=== PATIENT | female | born 1965 | race Caucasian/White ===

== ENCOUNTER 2016-05-27 10:41 | Emergency (ER) | payer SELFPAY ==
[2016-05-27 10:43] VITALS: BP 202/96; PULSE 68; RESP 16; TEMP 98.5; O2SAT 99
[2016-05-27 10:48] VITALS: BP 181/97
[2016-05-27] MEDS ORDERED: MAGICADU2 SWISH-SPIT (11:00)
[2016-05-27] MEDS ORDERED: IBUP800T23 PO (11:00)
[2016-05-27] MEDS ORDERED: PERI0.126 SWISH-SPIT (11:00)
[2016-05-27] MEDS ORDERED: CLIN1CAP5 PO (11:00)
--- NOTE | 2016-05-27 11:00 | PD ---
HPI Chief Complaint: Oral / Dental Pain or Problem Time Seen by Provider: 10:58 Travel History International Travel<30 days: No Contact w/Intl Traveler<30days: No Traveled to known affect area: No History of Present Illness HPI 51-year-old female presents to the emergency Department with complaint of left lower tooth pain 2 days. Denies fever, chills, nausea, vomiting. Denies facial swelling or erythema. She is here on vacation and she called her dentist and he told her to come to the emergency department for antibiotics. She is requesting anabiotic's. She is allergic to penicillin. Patient on Plavix for history of heart attack with stent placement. Denies other significant past medical history. No other modifying factors or associated signs and symptoms. PFSH Past Medical History Hx Anticoagulant Therapy: Yes (plavix) Social History Tobacco Use: No Allergies-Medications (Allergen,Severity, Reaction): Coded Allergies: Penicillin (Verified Adverse Reaction, Severe, 05/27/16) FLUID UNDER THE JOINTS Reported Meds & Prescriptions Reported Meds & Active Scripts Active Magic Mouthwash Adult Liq (Multi-Ingredient Mouthwash/Gargle) 120 Ml Susp 5 Ml SWISH-SPIT Q3HR PRN Each 5mL contains: Nystatin 200,000units, Diphenhydramine 4.25mg, Viscous Lidocaine 10mg, Ugalde syrup 0.8 mL Peridex Liq (Chlorhexidine Gluconate (Mouth) Liq) 0.12% Soln 15 Ml SWISH-SPIT BID 10 Days Clindamycin (Clindamycin HCl) 150 Mg Cap 450 Mg PO Q6H 10 Days Ibuprofen 800 Mg Tab 800 Mg PO Q6HR PRN Review of Systems Except as stated in HPI: all other systems reviewed are Neg Physical Exam Narrative GENERAL: Well-nourished, well-developed patient, in no acute distress; afebrile , nontoxic appearing SKIN: Warm and dry. HEAD: Atraumatic. Normocephalic. No facial edema, erythema, tenderness on palpation. No lymphadenopathy. EYES: Pupils equal and round. No scleral icterus. No injection or drainage. ENT: Mucosa pink and moist. Airway patent. MOUTH: Mucous membranes moist, no lesions, tongue and gums appear normal. Left lower second molar is with large dental cavity and decay; tenderness to palpation; concerning gingiva is without erythema, edema, drainage; no obvious abscess noted. NECK: Trachea midline. No lymphadenopathy. CARDIOVASCULAR: Regular rate. RESPIRATORY: No accessory muscle use. GASTROINTESTINAL: Flat. MUSCULOSKELETAL: No obvious deformities. No clubbing. No cyanosis. No edema. NEUROLOGICAL: Awake and alert. Oriented 3. No obvious cranial nerve deficits. Motor grossly within normal limits. Normal speech. PSYCHIATRIC: Appropriate mood and affect; insight and judgment normal. Data Data Last Documented VS Vital Signs Date Time Temp Pulse Resp B/P Pulse Ox O2 Delivery O2 Flow Rate FiO2 05/27/16 10:48 181/97 05/27/16 10:43 98.5 68 16 99 Orders Acetaminophen (Tylenol) (05/27/16 11:15) [facility] Medical Decision Making Medical Screen Exam Complete: Yes Emergency Medical Condition: Yes Medical Record Reviewed: Yes Differential Diagnosis Dental abscess, dentalgia, gingivitis Narrative Course 51-year-old female physical exam consistent with left lower second molar dentalgia. Afebrile and nontoxic appearing. Patient denies fever, chills, nausea, vomiting. No facial edema or erythema. Ordered to penicillin. Patient on Plavix. Tylenol ordered. Clindamycin, Peridex mouth rinse, Magic mouthwash prescribed for home. Patient is medically cleared and stable for discharge. Discussed reasons to return to the emergency department. Instructed patient to follow up with primary care provider. Patient agrees with treatment plan. The patients vital signs are stable and the patient is stable for outpatient follow-up and treatment. Patient discharged home, stable and in no acute distress. Diagnosis Primary Impression: Dentalgia Referrals: Dentist Primary Care Physician Patient Instructions: Dental Abscess (ED), Dental Caries (ED), General Instructions, Toothache (ED) Departure Forms: Tests/Procedures, Work Release Enter return to work date: May 27, 2016 Additional Instructions: Complete full course of antibiotics Ibuprofen or Tylenol as directed and as needed to reduce pain and inflammation Use Magic mouthwash rinse as directed and as needed to decrease pain Use Peridex as directed for oral hygiene Warm compresses to the affected area Follow-up with dentist Follow-up with primary care provider Return to emergency department immediately with worsening of symptoms Med/Other Pt SpecificInfo: Prescription(s) given Scripts Dxcsqyok-Kawqyqgzdfjvgpt-Mzcxmjpos Liq (Magic Mouthwash Adult Liq)120 Ml Susp5 Ml SWISH-SPIT Q3HR PRN (PAIN SCALE 1 TO 10) #120 ML Ref 0 Each 5mL contains: Nystatin 200,000units, Diphenhydramine 4.25mg, Viscous Lidocaine 10mg, Ugalde syrup 0.8 mL Prov:Tabatha Sanz 05/27/16 Chlorhexidine Gluconate (Mouth) Liq (Peridex Liq)0.12% Soln15 Ml SWISH-SPIT BID 10 Days Ref 0 Prov:Tabatha Sanz 05/27/16 Clindamycin 150 Mg Mix957 Mg PO Q6H 10 Days Ref 0 Prov:Tabatha Sanz 05/27/16 Disposition: 01 DISCHARGE HOME Condition: Stable Tabatha Sanz May 27, 2016 11:00
[2016-05-27] MEDS ORDERED: ACETAMINOPHEN 325 MG TAB PO ONE (11:15)
== END 2016-05-27 11:21 | disposition home or self-care (01) ==
LOC: NEPB 10:41
DX: K08.89 Other specified disorders of teeth and supporting structures (principal); Z79.02 Long term (current) use of antithrombotics/antiplatelets; I25.2 Old myocardial infarction; Z88.0 Allergy status to penicillin
CPT/HCPCS: 99282

== ENCOUNTER 2016-05-30 13:29 | Emergency (ER) | payer SELFPAY ==
[~2016-05-30] VITALS: Ht 170.2 cm; Wt 70.0 kg
[~2016-05-30 13:29] MED LIST: CLIN1CAP5 PO; MAGICADU2 SWISH-SPIT; PERI0.126 SWISH-SPIT
[2016-05-30 13:37] VITALS: BP 194/104; PULSE 83; RESP 16; TEMP 98.1; O2SAT 98
[2016-05-30 15:40] VITALS: BP 197/88; PULSE 82; RESP 19; O2SAT 97
[2016-05-30] MEDS ORDERED: BLOOD PRESSURE MED PO (15:49)
[2016-05-30] MEDS ORDERED: APIX2.5T PO (15:49)
--- NOTE | 2016-05-30 15:49 | PD ---
HPI Chief Complaint: Oral / Dental Pain or Problem Time Seen by Provider: 15:47 Travel History International Travel<30 days: No Contact w/Intl Traveler<30days: No Traveled to known affect area: No History of Present Illness HPI 51-year-old female presents emergency Department with complaint of left lower dental pain since she was seen here on May 27. She has been taking the clindamycin that was prescribed to her as directed. She has not followed up with dentist. She is asking for pain medications. Patient is on anticoagulants for history of cardiac stents. She does not know what anticoagulant she is on. She denies fever, chills, nausea, vomiting. Reports swelling to her gums around the painful tooth. Allergies to penicillin. No other modifying factors or associated signs and symptoms. PFSH Past Medical History Hx Anticoagulant Therapy: Yes (plavix) ?: Not Past Surgical History Hysterectomy: Yes Social History Tobacco Use: No Allergies-Medications (Allergen,Severity, Reaction): Coded Allergies: Penicillin (Verified Adverse Reaction, Severe, 05/30/16) FLUID UNDER THE JOINTS Reported Meds & Prescriptions Reported Meds & Active Scripts Active Deltasone (Prednisone) 20 Mg Tab 40 Mg PO DAILY 5 Days Magic Mouthwash Adult Liq (Multi-Ingredient Mouthwash/Gargle) 120 Ml Susp 5 Ml SWISH-SPIT Q3HR PRN Each 5mL contains: Nystatin 200,000units, Diphenhydramine 4.25mg, Viscous Lidocaine 10mg, Ugalde syrup 0.8 mL Peridex Liq (Chlorhexidine Gluconate (Mouth) Liq) 0.12% Soln 15 Ml SWISH-SPIT BID 10 Days Clindamycin (Clindamycin HCl) 150 Mg Cap 450 Mg PO Q6H 10 Days Reported [Blood Pressure Med] 1 Tab PO BID Eliquis (Apixaban) 2.5 Mg Tab 2.5 Mg PO BID UNKNOWN DOSE Review of Systems Except as stated in HPI: all other systems reviewed are Neg Physical Exam Narrative GENERAL: Well-nourished, well-developed female patient, in no acute distress SKIN: Warm and dry. HEAD: Atraumatic. Normocephalic. No facial edema, erythema, tenderness on palpation. No lymphadenopathy. EYES: Pupils equal and round. No scleral icterus. No injection or drainage. ENT: Mucosa pink and moist. Airway patent. MOUTH: Mucous membranes moist, no lesions, tongue and gums appear normal. Left lower second molar with tenderness palpation and obvious abscess with fluctuance noted. NECK: Trachea midline. No lymphadenopathy. CARDIOVASCULAR: Regular rate. RESPIRATORY: No accessory muscle use. GASTROINTESTINAL: Flat. MUSCULOSKELETAL: No obvious deformities. No clubbing. No cyanosis. No edema. NEUROLOGICAL: Awake and alert. Oriented 3. No obvious cranial nerve deficits. Motor grossly within normal limits. Normal speech. PSYCHIATRIC: Appropriate mood and affect; insight and judgment normal. Data Data Last Documented VS Vital Signs Date Time Temp Pulse Resp B/P Pulse Ox O2 Delivery O2 Flow Rate FiO2 05/30/16 15:40 82 19 197/88 97 Room Air 05/30/16 13:37 98.1 [facility] Medical Decision Making Medical Screen Exam Complete: Yes Emergency Medical Condition: Yes Medical Record Reviewed: Yes Differential Diagnosis Dental abscess, gingivitis, dental caries, dentalgia, pain management Narrative Course 51-year-old female with left lower dental abscess that is noted with fluctuance. See my procedure note for incision and drainage. No facial erythema or edema. Patient is afebrile and nontoxic-appearing. She denies fever, chills, nausea, vomiting. She was seen here a May 27 and she currently has a prescription for clindamycin which she has been taking as prescribed. Patient is on anticoagulants for history of cardiac stents. Instructed patient to take Tylenol as directed and as needed for pain. Deltasone prescribed for home. Instructed patient to follow up with dentist. Patient verbalizes understanding and agreement with treatment plan. Patient is medically cleared and stable for discharge. Discussed reasons to return to the emergency department. Instructed patient to follow up with primary care provider. Patient agrees with treatment plan. The patients vital signs are stable and the patient is stable for outpatient follow-up and treatment. Patient discharged home, stable and in no acute distress. Procedures Procedure Narrative INCISION AND DRAINAGE OF ABSCESS: The area was prepped and was sterilely draped. Hurricaine spray was used to anesthetize the area. The area was properly anesthetized. A number 11 scalpel was used to make a less than 0.5-cm incision across the area of the abscess. The abscess was drained an irrigated with normal saline. Sterile dressing applied. Diagnosis Primary Impression: Dental abscess Referrals: Dentist Primary Care Physician Patient Instructions: Dental Abscess (ED), General Instructions Additional Instructions: Complete full course of antibiotics Tylenol as directed and as needed to reduce pain and inflammation Use Magic mouthwash rinse as directed and as needed to decrease pain Use Peridex as directed for oral hygiene Warm compresses to the affected area Follow-up with dentist Follow-up with primary care provider Return to emergency department immediately with worsening of symptoms Med/Other Pt SpecificInfo: Prescription(s) given, No Change to Meds Scripts Prednisone (Deltasone)20 Mg Tab40 Mg PO DAILY 5 Days Ref 0 Prov:Tabatha Sanz 05/30/16 Disposition: 01 DISCHARGE HOME Condition: Stable Tabatha Sanz May 30, 2016 15:49
[2016-05-30] MEDS ORDERED: PRED-503 PO (15:54)
== END 2016-05-30 16:19 | disposition home or self-care (01) ==
LOC: NETRI 13:29
DX: K04.7 Periapical abscess without sinus (principal); Z79.01 Long term (current) use of anticoagulants
CPT/HCPCS: 41800